=== PATIENT | female | born 1975 | race Two or more races ===

== ENCOUNTER → 2024-03-08 | Outpatient (CLI) | payer OTHER ==
[2024-03-08 11:16] LABS: Urine Bacteria None Seen /hpf (None Seen)
[2024-03-08 11:25] LABS: Basophils # (auto) 0.1 10 ^3/uL (0-0.2); Basophils % (auto) 0.9 % (0.0-2.0); Eosinophils # (auto) 0 10 ^3/uL (0-0.8); Eosinophils % (auto) 0.4 % (0.0-7.0); Hematocrit 41.2 % (36.0-46.0); Hemoglobin 14.1 g/dL (12.2-16.2); Lymphocytes # (auto) 1.8 10 ^3/uL (0.4-5.4); Mean Corpuscular Hemoglobin 29.5 pg (28.0-32.0); Mean Corpuscular Hgb Conc. 34.2 g/dL (32.0-36.0); Mean Corpuscular Volume 86.2 fL (80.0-100.0); Monocytes # (auto) 0.5 10 ^3/uL (0-1.3); Monocytes % (auto) 5.7 % (0.0-12.0); Neutrophils # (auto) 5.7 10 ^3/uL (1.6-8.6); Red Blood Cells 4.78 10^6/uL (4.0-5.20); Red Cell Distribution Width 13.4 % (11.8-14.3)
[2024-03-08 11:34] LABS: Urine Blood 3+ /uL (Negative); Urine Clarity Turbid (Clear); Urine Color Light-Brown (Yellow); Urine Mucus FEW (None Seen); Urine Protein, UAD 1+ (Negative); Urine Specific Gravity 1.018 (1.001-1.035); Urine Urobilinogen Normal (Negative); Urine WBC 37 /hpf (0 - 5); Urine pH 6.5 (5.0-9.0)
[2024-03-08 12:21] LABS: Alanine Aminotransferase 17 U/L (7-40); Albumin 4.2 g/dL (3.2-4.8); Alkaline Phosphatase 73 U/L (46-116); Anion Gap 7 (5-15); Aspartate Aminotransferase < 8 U/L (13-40); BUN/Creatinine Ratio 12.2 (10.0-20.0); Blood Urea Nitrogen 10 mg/dL (9-23); Calcium 9.1 mg/dL (8.7-10.4); Carbon Dioxide 27 mmol/L (20-30); Chloride 106 mmol/L (98-107); Glucose 91 mg/dL (74-106); LDL Cholesterol 126 mg/dL (< 100); Potassium 3.8 mmol/L (3.5-5.1); Sodium 140 mmol/L (136-145); Triglycerides 91 mg/dL (< 150)
[2024-03-08 12:22] LABS: Cholesterol 178 mg/dL (< 200); HDL Cholesterol 45 mg/dL (40-59)
[2024-03-08 12:23] LABS: Bilirubin, Total 0.6 mg/dL (0.2-1.0); Total Protein 7.3 g/dL (5.7-8.2)
== END | disposition home or self-care (01) ==
LOC: LAB 11:03
PROVIDERS: ATTEND Student in an Organized Health Care Education/Training Program
DX: I10 Essential (primary) hypertension (principal); E55.9 Vitamin D deficiency, unspecified; R73.9 Hyperglycemia, unspecified; J30.2 Other seasonal allergic rhinitis
CPT/HCPCS: 36415; 80053; 80061; 81001; 82306; 82785; 84443; 85025; 86003

== ENCOUNTER → 2024-05-16 | Outpatient (CLI) | payer OTHER ==
[2024-05-16 13:09] LABS: Basophils # (auto) 0.1 10 ^3/uL (0-0.2); Basophils % (auto) 0.6 % (0.0-2.0); Eosinophils # (auto) 0 10 ^3/uL (0-0.8); Eosinophils % (auto) 0.3 % (0.0-7.0); Hematocrit 37.1 % (36.0-46.0); Hemoglobin 13.1 g/dL (12.2-16.2); Lymphocytes # (auto) 1.9 10 ^3/uL (0.4-5.4); Lymphocytes % (auto) 21.1 % (10.0-50.0); Mean Corpuscular Hemoglobin 30.3 pg (28.0-32.0); Mean Corpuscular Hgb Conc. 35.3 g/dL (32.0-36.0); Mean Corpuscular Volume 85.8 fL (80.0-100.0); Monocytes # (auto) 0.5 10 ^3/uL (0-1.3); Monocytes % (auto) 5.7 % (0.0-12.0); Neutrophils # (auto) 6.6 10 ^3/uL (1.6-8.6); Neutrophils % (auto) 72.3 % (37.0-80.0); Platelet Count (auto) 318 10^3/uL (140-450); Red Blood Cells 4.32 10^6/uL (4.0-5.20); Red Cell Distribution Width 13.6 % (11.8-14.3); White Blood Cell 9.1 10^3/uL (4.4-10.8)
[2024-05-16 13:56] LABS: Alanine Aminotransferase 15 U/L (7-40); Albumin 4.2 g/dL (3.2-4.8); Alkaline Phosphatase 62 U/L (46-116); Anion Gap 7 (5-15); Aspartate Aminotransferase 11 U/L (13-40); BUN/Creatinine Ratio 13.9 (10.0-20.0); Bilirubin, Total 0.6 mg/dL (0.2-1.0); Blood Urea Nitrogen 10 mg/dL (9-23); Calcium 9.2 mg/dL (8.7-10.4); Carbon Dioxide 27 mmol/L (20-31); Chloride 104 mmol/L (98-107); Cholesterol 163 mg/dL (< 200); Glucose 85 mg/dL (74-106); HDL Cholesterol 46 mg/dL (40-59); LDL Cholesterol 106 mg/dL (< 100); Potassium 3.6 mmol/L (3.5-5.1); Sodium 138 mmol/L (136-145); Total Protein 7.2 g/dL (5.7-8.2); Triglycerides 86 mg/dL (< 150)
[2024-05-16 14:21] LABS: Free T3 3.3 pg/mL (2.3-4.2); Free T4 (Free Thyroxine) 1.19 ng/dL (0.89-1.76)
== END | disposition home or self-care (01) ==
LOC: LAB 12:14
PROVIDERS: ATTEND Internal Medicine
DX: I10 Essential (primary) hypertension (principal); E04.1 Nontoxic single thyroid nodule; R06.02 Shortness of breath; R07.9 Chest pain, unspecified
CPT/HCPCS: 36415; 80053; 80061; 84439; 84443; 84481; 85025

== ENCOUNTER → 2024-06-06 | Outpatient (CLI) | payer OTHER | END | disposition home or self-care (01) | LOC: XYW 11:26 | PROVIDERS: ATTEND Internal Medicine | DX: I35.8 Other nonrheumatic aortic valve disorders (principal); I11.9 Hypertensive heart disease without heart failure; I70.0 Atherosclerosis of aorta; R07.9 Chest pain, unspecified; E66.9 Obesity, unspecified | CPT/HCPCS: 93306 ==

== ENCOUNTER → 2024-10-30 | Outpatient (CLI) | payer OTHER ==
--- NOTE | 2024-10-30 14:20 | DVH ---
US US GUIDANCE FOR NEEDLE PLACEME, HISTORY: THYROID NODULE PROCEDURE: An informed consent was obtained. Limited localization ultrasound of the thyroid gland was obtained. The right and left neck base was prepped with chlorhexidine which was allowed to dry and d raped in the usual sterile fashion. Timeout was performed. The skin and soft tissues were infiltrated with 1% Xylocaine. With ultrasound guidance, multiple fine needle aspirate biopsies of the nodules w ere obtained using a 25 gauge Secure-cut needle. The neck was cleaned and a sterile band-aid applied. The specimens were sent to pathology for analysis. No immediate complication was identified. FINDINGS: Solid right and left thyroid nodule. Limited ultrasound of the thyroid during the biopsy de monstrates biopsy needle within nodules. IMPRESSION: Ultrasound FNA biopsy of right and left thyroid nodules.
== END | disposition home or self-care (01) ==
LOC: XYW 11:27
PROVIDERS: ATTEND Student in an Organized Health Care Education/Training Program
DX: E04.2 Nontoxic multinodular goiter (principal); I10 Essential (primary) hypertension; E66.01 Morbid (severe) obesity due to excess calories; R07.89 Other chest pain; R93.89 Abnormal findings on diagnostic imaging of other specified body structures; Z98.890 Other specified postprocedural states; Z79.899 Other long term (current) drug therapy
CPT/HCPCS: 10005; 10006; 76942

== ENCOUNTER → 2024-11-22 | Outpatient (CLI) | payer OTHER ==
[~2024-11-22] VITALS: Ht 160 cm; Wt 99.8 kg
[2024-11-22 11:46] VITALS: BP 140/97; PULSE 93; RESP 17
--- NOTE | 2024-11-22 12:14 | DVHCARD ---
Cardiology Stress Test [place] Treadmill Stress Test [place] Referring MD: MD Moe Protocol: Mod. von (without cardiolite) Reason for referral: Chest Pain Target heart Rate:@85%: 147 Percent MPHR: 172 METS: 4.6 Resting Heart rate: 93 Resting Blood Pressure: 140/97 Exercise Heart Rate: 144 Exercise Blood Pressure: 197/95 Baseline EKG: Normal sinus rhythm Stress EKG: Sinus tachycardia Functional Capacity: Good Normal Heart Rate Response: Adequate Blood Pressure Response: Hypertensive Clinical response: Non-ischemic Arrhythmia?: No Cardiolite Injected?: No ST-T Changes: Non/Minimal Probability of Inducible Ische: Low Date of Service: Nov 22, 2024 Billing Provider: EVA PRASAD Cardiology Common Codes: PROCEDURE ONLY Treadmill w/o Cardiolite: [id number], INTERP, RPT EVA PRASAD Nov 22, 2024 12:14
== END | disposition home or self-care (01) ==
LOC: XYW 11:24
PROVIDERS: ATTEND Internal Medicine
DX: R00.0 Tachycardia, unspecified (principal); I10 Essential (primary) hypertension; R07.89 Other chest pain
CPT/HCPCS: 93017